=== PATIENT | female | born 1995 | race Caucasian/White ===

== ENCOUNTER 2017-02-06 08:00 | Inpatient (IN) | payer BC ==
[2017-02-06] MEDS ORDERED: Sodium Chloride 0.9% 2.5 ML Syringe FLUSH PRN (08:38)
[2017-02-06] MEDS ORDERED: Misoprostol 200 MCG Tab PO PRN (08:38)
[2017-02-06] MEDS ORDERED: Nalbuphine 10 MG/1 ML Vial IVPUSH PRN (08:38)
[2017-02-06] MEDS ORDERED: Sodium Chloride 0.9% 10 ML Syringe FLUSH PRN (08:38)
[2017-02-06] MEDS ORDERED: Lidocaine 1% 50 ML MDV INJECT PRN (08:38)
[2017-02-06] MEDS ORDERED: Butorphanol 1 MG/ML SDV IVPUSH PRN (08:38)
[2017-02-06] MEDS ORDERED: Carboprost Tromethamine 250 MCG/1 ML Amp IM PRN (08:38)
[2017-02-06] MEDS ORDERED: Water For Irrigation,Sterile 1,000 ML Container IRR PRN (08:38)
[2017-02-06] MEDS ORDERED: Methylergonovine 0.2 MG/1 ML Amp IM PRN (08:38)
[2017-02-06] MEDS ORDERED: Oxytocin/Lactated Ringers 30 UNIT/500 ML BAG IV SCH (08:45)
[2017-02-06] MEDS ORDERED: Ampicillin 2 GM in Sodium Chloride 0.9% 100 ML IV ONE (09:00)
[2017-02-06] MEDS: Lactated Ringers 1,000 ML IV SCH ×3 (09:07→11:20)
--- NOTE | 2017-02-06 10:11 | PCM.PREANE ---
Preanesthetic Assessment - Anesthesia/Transfusion/Family Hx Anesthesia History: Prior Anesthesia Without Reaction Transfusion History: No Prior Transfusion(s) - Review of Systems General: No Symptoms Pulmonary: No Symptoms Cardiovascular: No Symptoms Gastrointestinal: No symptoms Neurological: No Symptoms Other: Reports: None - Physical Assessment Height: 5 ft 5 in Weight: 72.575 kg ASA Class: 2 Mental Status: Alert & Oriented x3 Airway Class: Mallampati = 2 Dentition: Reports: Normal Dentition Thyro-Mental Finger Breadths: 3 Mouth Opening Finger Breadths: 3 ROM/Head Extension: Full Lungs: Clear to auscultation, Normal respiratory effort Cardiovascular: Regular Rate, Regular Rhythm - Lab Values: Laboratory Last Values WBC 14.07 K/uL (4.0-11.0) H 02/06/17 09:00 RBC 4.45 M/uL (4.30-5.90) 02/06/17 09:00 Hgb 9.7 g/dL (12.0-16.0) L 02/06/17 09:00 Hct 31.2 % (36.0-46.0) L 02/06/17 09:00 MCV 70.1 fL (80.0-98.0) L 02/06/17 09:00 MCH 21.8 pg (27.0-32.0) L 02/06/17 09:00 MCHC 31.1 g/dL (31.0-37.0) 02/06/17 09:00 RDW Std Deviation 43.6 fl (28.0-62.0) 02/06/17 09:00 RDW Coeff of Cuco 17 % (11.0-15.0) H 02/06/17 09:00 Plt Count 222 K/uL (150-400) 02/06/17 09:00 MPV 9.00 fL (7.40-12.00) 02/06/17 09:00 Nucleated RBC % 0.0 /100WBC 02/06/17 09:00 Nucleated RBCs # 0 K/uL 02/06/17 09:00 - Allergies Allergies/Adverse Reactions: Allergies Allergy/AdvReac Type Severity Reaction Status Date / Time Sulfa (Sulfonamide Allergy Cannot Verified 12/27/15 12:56 Antibiotics) Remember - Acknowledgements Anesthesia Type Planned: Epidural Pt an Appropriate Candidate for the Planned Anesthesia: Yes Alternatives and Risks of Anesthesia Discussed w Pt/Guardian: Yes Pt/Guardian Understands and Agrees with Anesthesia Plan: Yes PreAnesthesia Questionnaire - Past Health History Medical/Surgical History: Denies Medical/Surgical History HEENT History: Reports: None Cardiovascular History: Reports: None Respiratory History: Reports: Asthma Gastrointestinal History: Reports: GERD Genitourinary History: Reports: None 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 [No Known Home Meds] 12/27/15 [History] - CURRENT (IN HOUSE) MEDS Current Meds: Current Medications Butorphanol Tartrate (Stadol) 1 mg IVPUSH Q1H PRN PRN Reason: Pain Carboprost Tromethamine (Hemabate Ds) 250 mcg IM ASDIRECTED PRN PRN Reason: Post Hemorrhage Ampicillin Sodium 1,000 mg/ (Sodium Chloride) 50 mls @ 100 mls/hr IV Q4H PERFECTO Lactated Ringer's (Ringers, Lactated) 1,000 mls @ 150 mls/hr IV ASDIRECTED [facility] Last Admin: 02/06/17 09:07 Dose: 150 mls/hr Lidocaine HCl (Xylocaine 1%) 50 ml INJECT .ONCE PRN PRN Reason: Laceration repair Methylergonovine Maleate (Methergine) 0.2 mg IM ASDIRECTED PRN PRN Reason: Post Hemorrhage Misoprostol (Cytotec) 200 mcg PO .ONCE PRN PRN Reason: Post Hemorrhage Nalbuphine HCl (Nubain) 10 mg IVPUSH Q1H PRN PRN Reason: Pain (severe 7-10) Stop: 02/06/17 10:39 Sodium Chloride (Saline Flush) 10 ml FLUSH ASDIRECTED PRN PRN Reason: Keep Vein Open Sodium Chloride (Saline Flush) 2.5 ml FLUSH ASDIRECTED PRN PRN Reason: Keep Vein Open Sterile Water (Sterile Water For Irrigation) 1,000 ml IRR ASDIRECTED PRN PRN Reason: delivery Discontinued Medications Ampicillin Sodium 2 gm/ Sodium (Chloride) 100 mls @ 200 mls/hr IV ONETIME ONE Stop: 02/06/17 09:29 Last Admin: 02/06/17 09:13 Dose: 200 mls/hr Oxytocin/Lactated Ringer's (Pitocin In Lr 30 Units/500 Ml) 30 unit in 500 mls @ 999 mls/hr IV TITRATE PERFECTO Stop: 02/06/17 09:16
[2017-02-06] MEDS ORDERED: Ropivacaine HCl/PF 100 ML ONE (10:12)
[2017-02-06] MEDS ORDERED: fentaNYL 100 MCG/2 ML SDV ONE (10:12)
--- NOTE | 2017-02-06 11:24 | PCM.LDHP ---
L&D History of Present Illness - General Date of Service: 02/06/17 Admit Problem/Dx: Patient Status Order with Admit Dx/Problem 02/06/17 08:38 Patient Status [ADT] Routine Admission Diagnosis/Problem Admission Diagnosis/Problem 02/06/17 11:19 21 yo EDC 02/07/2017 39 6/7wks, A-, RI, GBS pos. Active labor, stable Source of Information: Patient History Limitations: Reports: No Limitations - History of Present Illness Improves with: Reports: None Worsens with: Reports: None Associated Symptoms: Reports: N - Related Data Allergies/Adverse Reactions: Allergies Allergy/AdvReac Type Severity Reaction Status Date / Time Sulfa (Sulfonamide Allergy Cannot Verified 12/27/15 12:56 Antibiotics) Remember Home Medications: Home Meds . 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: Musculoskeletal History: Reports: None Neurological History: Reports: None Psychiatric History: Reports: None Endocrine/Metabolic History: Reports: None Hematologic History: Reports: None Immunologic History: Reports: None Oncologic (Cancer) History: Reports: None Dermatologic History: Reports: None - Infectious Disease History Infectious Disease History: Reports: None Social & Family History - Family History Family Medical History: Noncontributory - Tobacco Use Smoking Status *Q: Never Smoker Second Hand Smoke Exposure: No - Caffeine Use Caffeine Use: Reports: Coffee, Soda - Recreational Drug Use Recreational Drug Use: No H&P Review of Systems - Review of Systems: Review Of Systems: See Below General: Reports: No Symptoms HEENT: Reports: No Symptoms Pulmonary: Reports: No Symptoms Cardiovascular: Reports: No Symptoms Gastrointestinal: Reports: No Symptoms Genitourinary: Reports: No Symptoms Musculoskeletal: Reports: No Symptoms Skin: Reports: No Symptoms Psychiatric: Reports: No Symptoms Neurological: Reports: No Symptoms Hematologic/Lymphatic: Reports: No Symptoms Immunologic: Reports: No Symptoms L&D Exam - Exam Exam: See Below - Vital Signs Weight: 72.575 kg - OB Specific Contraction Intensity: Strong Movement: Active Heart Tones: Present Heart Tones per Min: 95 Heart Rate (FHR) Variability: Moderate (6-25 bmp) Presentation: Vertex - Choi Score Choi Score Cervix Position: Midposition Choi Score Consistency: Soft Choi Score Effacement: >80% Choi Score Dilation: > 5 cm Choi Score Infant's Station: -2 Choi Score Total: 10 - Exam General: Alert, Oriented, Cooperative HEENT: Hearing Intact Lungs: Normal Respiratory Effort Abdomen: Soft (gravid) Rectal Exam: Deferred Genitourinary: Normal bimanual exam, Cervical dilitation (6-7/80/-2 ), Cervical fluid (AROM clear fluid) Back Exam: Full Range of Motion Extremities: Normal Inspection Skin: Warm, Dry, Intact Neurological: Cranial Nerves Intact, Normal Speech, Normal Tone Psychiatric: Alert, Normal Affect, Normal Mood - Patient Data Lab Results Last 24 hrs: Laboratory Results - last 24 hr 02/06/17 02/06/17 Range/Units 09:00 09:00 WBC 14.07 H (4.0-11.0) K/uL RBC 4.45 (4.30-5.90) M/uL Hgb 9.7 L (12.0-16.0) g/dL Hct 31.2 L (36.0-46.0) % MCV 70.1 L (80.0-98.0) fL MCH 21.8 L (27.0-32.0) pg MCHC 31.1 (31.0-37.0) g/dL RDW Std Deviation 43.6 (28.0-62.0) fl RDW Coeff of Cuco 17 H (11.0-15.0) % Plt Count 222 (150-400) K/uL MPV 9.00 (7.40-12.00) fL Nucleated RBC % 0.0 /100WBC Nucleated RBCs # 0 K/uL Blood Type A NEGATIVE Antibody Screen NEGATIVE Result Diagrams: 02/06/17 09:00 - Problem List (1) Supervision of normal IUP (intrauterine ) in multigravida SNOMED Code(s): 160066085, 477304852, 948429938 ICD Code: Z34.80 - ENCOUNTER FOR SUPRVSN OF NORMAL , UNSP TRIMESTER Status: Acute Priority: High Current Visit: Yes Qualifiers: Trimester: third trimester Qualified Code(s): Z34.83 - Encounter for supervision of other normal , third trimester (2) Positive GBS test SNOMED Code(s): 5333731456302, 0528905282235 ICD Code: B95.1 - STREPTOCOCCUS, GROUP B, CAUSING DISEASES CLASSD ELSWHR Status: Acute Priority: Medium Current Visit: Yes Problem List Initiated/Reviewed/Updated: Yes Orders Last 24hrs: Active Orders 24 hr Category Date Time Status Patient Status [ADT] Routine ADT 02/06/17 08:38 Active Heart Tones [RC] CONTINUOUS Care 02/06/17 08:38 Active Non Stress Test [RC] PER UNIT ROUTINE Care 02/06/17 08:38 Active May Shower [RC] ASDIRECTED Care 02/06/17 08:38 Active Notify Provider [RC] PRN Care 02/06/17 08:38 Active Up ad Angela [RC] ASDIRECTED Care 02/06/17 08:38 Active Up ad Angela [RC] ASDIRECTED Care 02/06/17 08:39 Active Vaginal Exam [RC] PRN Care 02/06/17 08:38 Active Vital Signs [RC] PER UNIT ROUTINE Care 02/06/17 08:38 Active Vital Signs [RC] PER UNIT ROUTINE Care 02/06/17 08:39 Active Regular Diet [DIET] Diet 02/06/17 Lunch Active Ampicillin 1,000 mg Med 02/06/17 13:00 Active Sodium Chloride 0.9% [Normal Saline] 50 ml IV Q4H Butorphanol [Stadol] Med 02/06/17 08:38 Active 1 mg IVPUSH Q1H PRN Carboprost Tromethamine [Hemabate DS] Med 02/06/17 08:38 Active 250 mcg IM ASDIRECTED PRN Lactated Ringers [Ringers, Lactated] 1,000 ml Med 02/06/17 08:45 Active IV ASDIRECTED Lidocaine 1% [Xylocaine 1%] Med 02/06/17 08:38 Active 50 ml INJECT .ONCE PRN Methylergonovine [Methergine] Med 02/06/17 08:38 Active 0.2 mg IM ASDIRECTED PRN Misoprostol [Cytotec] Med 02/06/17 08:38 Active 200 mcg PO .ONCE PRN Sodium Chloride 0.9% [Saline Flush] Med 02/06/17 08:38 Active 10 ml FLUSH ASDIRECTED PRN Sodium Chloride 0.9% [Saline Flush] Med 02/06/17 08:38 Active 2.5 ml FLUSH ASDIRECTED PRN Water For Irrigation,Sterile [Sterile Water for Med 02/06/17 08:38 Active Irrigation] 1,000 ml IRR ASDIRECTED PRN Scalp Electrode [WOMSER] Per Unit Routine Oth 02/06/17 08:38 Ordered Peripheral IV Insertion Adult [OM.PC] Routine Oth 02/06/17 08:38 Ordered Resuscitation Status Routine Resus Stat 02/06/17 08:38 Ordered Medication Orders Butorphanol Tartrate (Stadol) 1 mg IVPUSH Q1H PRN PRN Reason: Pain Carboprost Tromethamine (Hemabate Ds) 250 mcg IM ASDIRECTED PRN PRN Reason: Post Hemorrhage Ampicillin Sodium 1,000 mg/ (Sodium Chloride) 50 mls @ 100 mls/hr IV Q4H PERFECTO Lactated Ringer's (Ringers, Lactated) 1,000 mls @ 150 mls/hr IV ASDIRECTED PERFECTO Last Admin: 02/06/17 09:07 Dose: 150 mls/hr Lidocaine HCl (Xylocaine 1%) 50 ml INJECT .ONCE PRN PRN Reason: Laceration repair Methylergonovine Maleate (Methergine) 0.2 mg IM ASDIRECTED PRN PRN Reason: Post Hemorrhage Misoprostol (Cytotec) 200 mcg PO .ONCE PRN PRN Reason: Post Hemorrhage Sodium Chloride (Saline Flush) 10 ml FLUSH ASDIRECTED PRN PRN Reason: Keep Vein Open Sodium Chloride (Saline Flush) 2.5 ml FLUSH ASDIRECTED PRN PRN Reason: Keep Vein Open Sterile Water (Sterile Water For Irrigation) 1,000 ml IRR ASDIRECTED PRN PRN Reason: delivery Assessment/Plan Comment:: Labor A: 21 yo EDC 02/07/2017 39 6/7wks, A-, RI, GBS pos. Active labor, stable P: Admit to L&D, epidural, antibiotics for GBS pos, anticipate . Dr Bello updated on pt status.
[2017-02-06] MEDS ORDERED: Oxytocin/Lactated Ringers 30 UNIT/500 ML BAG ONE (14:38)
[2017-02-06] MEDS ORDERED: Benzocaine/Menthol 20%-0.5% Spray 78 GM Cannister TOP PRN (15:24)
[2017-02-06] MEDS ORDERED: Witch Hazel Medicated Pads 40/Jar TOP PRN (15:24)
[2017-02-06] MEDS ORDERED: Ibuprofen 400 MG Tab PO PRN (15:24)
[2017-02-06] MEDS ORDERED: Bisacodyl 10 MG Supp RECTAL PRN (15:24)
[2017-02-06] MEDS ORDERED: Docusate Sodium 100 MG Cap PO PRN (15:24)
[2017-02-06] MEDS ORDERED: Acetaminophen 500 MG Tab PO PRN ×2 (15:24)
[2017-02-06] MEDS ORDERED: Lanolin 100% Cream 7 GM Tube TOP PRN (15:24)
[2017-02-06] MEDS ORDERED: oxyCODONE 5 MG Tab PO PRN (15:24)
--- NOTE | 2017-02-06 15:33 | PCM.DEL ---
L & D Note - General Info Date of Service: 02/06/17 Mother's Due Date: 02/07/17 - Delivery Note Labor: spontaneous Delivery Outcome: Livebirth Infant Delivery Method: Spontaneous Vaginal Delivery Infant Delivery Mode: Spontaneous Presentation: Vertex Nuchal Cord: None Anesthesia Type: Epidural Amniotic Fluid Description: Clear Episiotomy Type: None Laceration: none Placenta: intact, spontaneous Cord: 3 vessels Estimated Blood Loss: 150 Resuscitation Needed: No Second Stage Interventions: Reports: Pushing Effectively Delivery Comments (Free Text/Narrative):: of viable male over intact perineum, Head delivered with great pushing, shoulders and body followed with FOB helping to catch. Dr Watson and Resp at bs due to decreased FHT. to mothers abd until cord clamped x2 and cut by FOB. to warmer for evaluation. Pitocin to IVF. Cord blood collected. Placenta delivered grossly intact. 3VC noted. Inspection noted intact perineum. EBL 150cc, APGARS and weight unavailable at this time. Mother left in stable condition, infant continues to be evaluated by peds team. - General Info Date of Service: 02/06/17 Admission Dx/Problem (Free Text): Patient Status Order with Admit Dx/Problem 02/06/17 08:38 Patient Status [ADT] Routine Admission Diagnosis/Problem Admission Diagnosis/Problem 02/06/17 11:19 21 yo EDC 02/07/2017 39 6/7wks, A-, RI, GBS pos. Active labor, stable Functional Status: Reports: pain controlled - Review of Systems General: Reports: No Symptoms HEENT: Reports: no symptoms Pulmonary: Reports: no symptoms Cardiovascular: Reports: No Symptoms Gastrointestinal: Reports: No symptoms Genitourinary: Reports: no symptoms Musculoskeletal: Reports: no symptoms Skin: Reports: no symptoms Neurological: Reports: No Symptoms Psychiatric: Reports: no symptoms - Patient Data Weight - most recent: 72.575 kg Lab Results last 24 hrs: Laboratory Results - last 24 hr 02/06/17 02/06/17 Range/Units 09:00 09:00 WBC 14.07 H (4.0-11.0) K/uL RBC 4.45 (4.30-5.90) M/uL Hgb 9.7 L (12.0-16.0) g/dL Hct 31.2 L (36.0-46.0) % MCV 70.1 L (80.0-98.0) fL MCH 21.8 L (27.0-32.0) pg MCHC 31.1 (31.0-37.0) g/dL RDW Std Deviation 43.6 (28.0-62.0) fl RDW Coeff of Cuco 17 H (11.0-15.0) % Plt Count 222 (150-400) K/uL MPV 9.00 (7.40-12.00) fL Nucleated RBC % 0.0 /100WBC Nucleated RBCs # 0 K/uL Blood Type A NEGATIVE Antibody Screen NEGATIVE Med Orders - Current: Current Medications Acetaminophen (Tylenol Extra Strength) 500 mg PO Q4H PRN PRN Reason: Pain Acetaminophen (Tylenol Extra Strength) 1,000 mg PO Q4H PRN PRN Reason: Pain Benzocaine/Menthol (Dermoplast Pain Relief 20%-0.5% [place]) 78 gm TOP ASDIRECTED PRN PRN Reason: Perineal Comfort Measure Bisacodyl (Dulcolax) 10 mg RECTAL .ONCE PRN PRN Reason: Constipation Docusate Sodium (Colace) 100 mg PO BID PRN PRN Reason: Constipation Emollient Ointment (Lansinoh Hpa) 0 gm TOP ASDIRECTED PRN PRN Reason: Sore Nipples Ibuprofen (Motrin) 400 mg PO Q4H PRN PRN Reason: Pain Ibuprofen (Motrin) 800 mg PO Q6H PRN PRN Reason: Pain Oxycodone HCl (Oxycodone) 5 mg PO Q2H PRN PRN Reason: Pain Witch Angie (Tucks) 1 pad TOP ASDIRECTED PRN PRN Reason: comfort care Discontinued Medications Butorphanol Tartrate (Stadol) 1 mg IVPUSH Q1H PRN PRN Reason: Pain Carboprost Tromethamine (Hemabate Ds) 250 mcg IM ASDIRECTED PRN PRN Reason: Post Hemorrhage Fentanyl (Sublimaze) Confirm Administered Dose 100 mcg .ROUTE .STK-MED ONE Stop: 02/06/17 10:13 Ampicillin Sodium 2 gm/ Sodium (Chloride) 100 mls @ 200 mls/hr IV ONETIME ONE Stop: 02/06/17 09:29 Last Admin: 02/06/17 09:13 Dose: 200 mls/hr Ampicillin Sodium 1,000 mg/ (Sodium Chloride) 50 mls @ 100 mls/hr IV Q4H [facility] Last Admin: 02/06/17 13:34 Dose: 100 mls/hr Lactated Ringer's (Ringers, Lactated) 1,000 mls @ 150 mls/hr IV ASDIRECTED [facility] Last Admin: 02/06/17 11:20 Dose: 150 mls/hr Oxytocin/Lactated Ringer's (Pitocin In Lr 30 Units/500 Ml) 30 unit in 500 mls @ 999 mls/hr IV TITRATE PERFECTO Stop: 02/06/17 09:16 Ropivacaine (Naropin 0.2%) Confirm Administered Dose 100 mls @ as directed .ROUTE .STK-MED ONE Stop: 02/06/17 10:13 Oxytocin/Lactated Ringer's (Pitocin In Lr 30 Units/500 Ml) Confirm Administered Dose 30 unit in 500 mls @ as directed .ROUTE .STK-MED ONE Stop: 02/06/17 14:39 Lidocaine HCl (Xylocaine 1%) 50 ml INJECT .ONCE PRN PRN Reason: Laceration repair Methylergonovine Maleate (Methergine) 0.2 mg IM ASDIRECTED PRN PRN Reason: Post Hemorrhage Misoprostol (Cytotec) 200 mcg PO .ONCE PRN PRN Reason: Post Hemorrhage Nalbuphine HCl (Nubain) 10 mg IVPUSH Q1H PRN PRN Reason: Pain (severe 7-10) Stop: 02/06/17 10:39 Sodium Chloride (Saline Flush) 10 ml FLUSH ASDIRECTED PRN PRN Reason: Keep Vein Open Sodium Chloride (Saline Flush) 2.5 ml FLUSH ASDIRECTED PRN PRN Reason: Keep Vein Open Sterile Water (Sterile Water For Irrigation) 1,000 ml IRR ASDIRECTED PRN PRN Reason: delivery - Exam General: alert, oriented, cooperative, no acute distress Lungs: Normal respiratory effort Abdomen: soft (Female) Exam: Normal External Exam, Normal Bimanual Exam, Vaginal Bleeding Back Exam: Full Range of Motion Extremities: no edema, no tenderness/swelling Skin: warm, dry, intact Wound/Incisions: healing well Neurological: no new focal deficit, normal speech, normal tone Psy/Mental Status: alert, normal affect, normal mood - Problem List & Annotations (1) Supervision of normal IUP (intrauterine ) in multigravida SNOMED Code(s): 728563585, 986528072, 632458990 Code(s): Z34.80 - ENCOUNTER FOR SUPRVSN OF NORMAL , UNSP TRIMESTER Status: Acute Priority: High Current Visit: Yes Qualifiers: Trimester: third trimester Qualified Code(s): Z34.83 - Encounter for supervision of other normal , third trimester (2) Positive GBS test SNOMED Code(s): 6843096656434, 0627731676157 Code(s): B95.1 - STREPTOCOCCUS, GROUP B, CAUSING DISEASES CLASSD ELSWHR Status: Acute Priority: Medium Current Visit: Yes (3) (spontaneous vaginal delivery) SNOMED Code(s): 95286327 Code(s): O80 - ENCOUNTER FOR FULL-TERM UNCOMPLICATED DELIVERY Status: Acute Priority: Medium Current Visit: Yes - Problem List Review Problem List Initiated/Reviewed/Updated: Yes - My Orders Last 24 Hours: My Active Orders 02/06/17 08:38 Non Stress Test [RC] PER UNIT ROUTINE Vital Signs [RC] PER UNIT ROUTINE 02/06/17 15:24 May Shower [RC] ASDIRECTED Up ad Angela [RC] ASDIRECTED Vital Signs [RC] PER UNIT ROUTINE Acetaminophen [Tylenol Extra Strength] 1,000 mg PO Q4H PRN Acetaminophen [Tylenol Extra Strength] 500 mg PO Q4H PRN Benzocaine/Menthol [Dermoplast Pain Relief 20%-0.5% [place]] 78 gm TOP ASDIRECTED PRN Bisacodyl [Dulcolax] 10 mg RECTAL .ONCE PRN Docusate Sodium [Colace] 100 mg PO BID PRN Ibuprofen [Motrin] 400 mg PO Q4H PRN Ibuprofen [Motrin] 800 mg PO Q6H PRN Lanolin [Lansinoh HPA] See Dose Instructions TOP ASDIRECTED PRN Witch Angie [Tucks] 1 pad TOP ASDIRECTED PRN oxyCODONE 5 mg PO Q2H PRN Assess Lochia [WOMSER] Per Unit Routine Assess Uterine Involution [WOMSER] Per Unit Routine Peripheral IV Discontinue [OM.PC] Routine Resuscitation Status Routine 02/06/17 15:25 Patient Status [ADT] Routine 02/06/17 Dinner Regular Diet [DIET] - Assessment Assessment:: of viable male over intact perineum. APGARS and Wt pending. EBL 150cc, Stable - Plan Plan:: Labor A: 21 yo EDC 02/07/2017 39 6/7wks, A-, RI, GBS pos. Active labor, stable P: Admit to L&D, epidural, antibiotics for GBS pos, anticipate . Dr Bello updated on pt status. Delivered P: routine pp plan of care.
--- NOTE | 2017-02-07 06:39 | PCM48HPAN ---
Post Anesthesia Note - EVALUATION WITHIN 48HRS OF ANESTHETIC Vital Signs in Normal Range: Yes Patient Participated in Evaluation: Yes Respiratory Function Stable: Yes Airway Patent: Yes Cardiovascular Function Stable: Yes Hydration Status Stable: Yes Pain Control Satisfactory: Yes Nausea and Vomiting Control Satisfactory: Yes Mental Status Recovered: Yes
[2017-02-07] MEDS: Ibuprofen 800 MG Tab PO PRN ×2 (08:38→14:48)
[2017-02-07 08:57] VITALS: BP 108/60
--- NOTE | 2017-02-07 12:08 | PCM.DCSUM1 ---
Discharge Summary - Hospital Course Free Text/Narrative:: Discharge home in . Follow up 6 weeks or sooner if needed. - Discharge Data Discharge Date: 02/07/17 Discharge Disposition: Home, Self-Care 01 Condition: Good - Discharge Diagnosis/Problem(s) (1) Supervision of normal IUP (intrauterine ) in multigravida SNOMED Code(s): 700016662, 716012977, 192265424 ICD Code: Z34.80 - ENCOUNTER FOR SUPRVSN OF NORMAL , UNSP TRIMESTER Status: Acute Priority: High Current Visit: Yes Qualifiers: Trimester: third trimester Qualified Code(s): Z34.83 - Encounter for supervision of other normal , third trimester (2) Positive GBS test SNOMED Code(s): 1922188387977, 3162190678071 ICD Code: B95.1 - STREPTOCOCCUS, GROUP B, CAUSING DISEASES CLASSD ELSWHR Status: Acute Priority: Medium Current Visit: Yes (3) (spontaneous vaginal delivery) SNOMED Code(s): 29557537 ICD Code: O80 - ENCOUNTER FOR FULL-TERM UNCOMPLICATED DELIVERY Status: Acute Priority: Medium Current Visit: Yes - Patient Instructions Diet: Usual Diet as Tolerated Activity: As Tolerated, Rest and Relax Today Driving: Do Not Drive Showering/Bathing: May Shower Notify Provider of: Fever, Increased Pain, Swelling and Redness, Nausea and/or Vomiting - Discharge Plan Home Medications: Home Meds . [No Known Home Meds] 12/27/15 [History] Referrals: [facility] [Outside] Montserrat Sow CNM [Mid-] - 03/20/17 1:30 pm - General Info Date of Service: 02/07/17 Admission Dx/Problem (Free Text: Patient Status Order with Admit Dx/Problem 02/06/17 08:38 Patient Status [ADT] Routine Admission Diagnosis/Problem Admission Diagnosis/Problem 02/06/17 11:19 21 yo EDC 02/07/2017 39 6/7wks, A-, RI, GBS pos. Active labor, stable Functional Status: Reports: pain controlled, tolerating diet, ambulating, urinating - Review of Systems General: Reports: No Symptoms HEENT: Reports: no symptoms Pulmonary: Reports: no symptoms Cardiovascular: Reports: No Symptoms Gastrointestinal: Reports: No symptoms Genitourinary: Reports: no symptoms Musculoskeletal: Reports: no symptoms Skin: Reports: no symptoms Neurological: Reports: No Symptoms Psychiatric: Reports: no symptoms - Patient Data Vitals - Most Recent: Last Vital Signs Temp 36.9 C 02/07/17 08:00 Pulse 84 02/07/17 08:00 Resp 16 02/07/17 08:00 BP 108/60 02/07/17 08:00 Pulse Ox 98 02/07/17 08:00 Weight - Most Recent: 72.575 kg Med Orders - Current: Current Medications Acetaminophen (Tylenol Extra Strength) 500 mg PO Q4H PRN PRN Reason: Pain Acetaminophen (Tylenol Extra Strength) 1,000 mg PO Q4H PRN PRN Reason: Pain Benzocaine/Menthol (Dermoplast Pain Relief 20%-0.5% Warren) 78 gm TOP ASDIRECTED PRN PRN Reason: Perineal Comfort Measure Bisacodyl (Dulcolax) 10 mg RECTAL .ONCE PRN PRN Reason: Constipation Docusate Sodium (Colace) 100 mg PO BID PRN PRN Reason: Constipation Last Admin: 02/07/17 08:38 Dose: 100 mg Emollient Ointment (Lansinoh Hpa) 0 gm TOP ASDIRECTED PRN PRN Reason: Sore Nipples Ibuprofen (Motrin) 400 mg PO Q4H PRN PRN Reason: Pain Ibuprofen (Motrin) 800 mg PO Q6H PRN PRN Reason: Pain Last Admin: 02/07/17 08:38 Dose: 800 mg Oxycodone HCl (Oxycodone) 5 mg PO Q2H PRN PRN Reason: Pain Witch Angie (Tucks) 1 pad TOP ASDIRECTED PRN PRN Reason: comfort care Discontinued Medications Butorphanol Tartrate (Stadol) 1 mg IVPUSH Q1H PRN PRN Reason: Pain Carboprost Tromethamine (Hemabate Ds) 250 mcg IM ASDIRECTED PRN PRN Reason: Post Hemorrhage Fentanyl (Sublimaze) Confirm Administered Dose 100 mcg .ROUTE .STK-MED ONE Stop: 02/06/17 10:13 Ampicillin Sodium 2 gm/ Sodium (Chloride) 100 mls @ 200 mls/hr IV ONETIME ONE Stop: 02/06/17 09:29 Last Admin: 02/06/17 09:13 Dose: 200 mls/hr Ampicillin Sodium 1,000 mg/ (Sodium Chloride) 50 mls @ 100 mls/hr IV Q4H [facility] Last Admin: 02/06/17 13:34 Dose: 100 mls/hr Lactated Ringer's (Ringers, Lactated) 1,000 mls @ 150 mls/hr IV ASDIRECTED [facility] Last Admin: 02/06/17 11:20 Dose: 150 mls/hr Oxytocin/Lactated Ringer's (Pitocin In Lr 30 Units/500 Ml) 30 unit in 500 mls @ 999 mls/hr IV TITRATE PERFECTO Stop: 02/06/17 09:16 Last Admin: 02/06/17 18:37 Dose: 999 mls/hr Ropivacaine (Naropin 0.2%) Confirm Administered Dose 100 mls @ as directed .ROUTE .STK-MED ONE Stop: 02/06/17 10:13 Oxytocin/Lactated Ringer's (Pitocin In Lr 30 Units/500 Ml) Confirm Administered Dose 30 unit in 500 mls @ as directed .ROUTE .STK-MED ONE Stop: 02/06/17 14:39 Lidocaine HCl (Xylocaine 1%) 50 ml INJECT .ONCE PRN PRN Reason: Laceration repair Methylergonovine Maleate (Methergine) 0.2 mg IM ASDIRECTED PRN PRN Reason: Post Hemorrhage Misoprostol (Cytotec) 200 mcg PO .ONCE PRN PRN Reason: Post Hemorrhage Nalbuphine HCl (Nubain) 10 mg IVPUSH Q1H PRN PRN Reason: Pain (severe 7-10) Stop: 02/06/17 10:39 Sodium Chloride (Saline Flush) 10 ml FLUSH ASDIRECTED PRN PRN Reason: Keep Vein Open Sodium Chloride (Saline Flush) 2.5 ml FLUSH ASDIRECTED PRN PRN Reason: Keep Vein Open Sterile Water (Sterile Water For Irrigation) 1,000 ml IRR ASDIRECTED PRN PRN Reason: delivery - Exam General: Reports: alert, oriented, cooperative, no acute distress Lungs: Reports: Normal respiratory effort Abdomen: Reports: soft, no tenderness, no distension (Female) Exam: Vaginal Bleeding Rectal (Female) Exam: Deferred Back Exam: Reports: Full Range of Motion Extremities: Reports: no edema, no tenderness/swelling, no calf tenderness Skin: Reports: warm, dry, intact Wound/Incisions: Reports: healing well Neurological: Reports: no new focal deficit, normal gait, normal speech, normal tone Psy/Mental Status: Reports: alert, normal affect, normal mood *Q Meaningful Use (DIS) - VTE *Q VTE Criteria *Q: - Stroke *Q Stroke Criteria *Q: - AMI *Q AMI Criteria *Q:
== END 2017-02-07 16:20 | disposition home or self-care (01) | DRG 560 ==
LOC: MW.OBCHECK 08:00 → MW.OB 08:10 → MW.OBCHECK 08:38 → OBSVTOIN 14:43 → MW.OB 19:00
PROVIDERS: ADMIT Obstetrics & Gynecology; ATTEND Obstetrics & Gynecology
PROC: 10E0XZZ Delivery of Products of Conception, External Approach (ICD-10-PCS; principal; 2017-02-06)
DX: O80 Encounter for full-term uncomplicated delivery (principal); B95.1 Streptococcus, group B, as the cause of diseases classified elsewhere; Z3A.39 39 weeks gestation of pregnancy; Z37.0 Single live birth
CPT/HCPCS: 01967; 36415; 59025; 85027; 86850; 86900; 86901; A9270-GY; J0290; J2795; J3010; J7030; J7050; J7120